=== PATIENT | female | born 1990 | race American Indian/Alaskan Native ===

== ENCOUNTER 2017-02-10 11:55 | Outpatient (CLI) | payer MEDICAID ==
[2017-02-10 12:52] LABS: Bilirubin,Urine NEG (Negative); Blood,Urine NEG (Negative); Ketones,Urine NEG (Negative); Leukocyte Esterase,Urine SM (Negative); Mucus,Urine FEW /HPF; Nitrite,Urine NEG (Negative); Protein,Urine <15 mg/dL mg/dL (Negative); Urobilinogen,Urine < 2.0 mg/dL (<2.0)
[2017-02-10] MEDS ORDERED: LACTATED RINGERS 500 ML IV ONE (13:12)
[2017-02-10 13:30] VITALS: BP 110/59
[2017-02-10] MEDS ORDERED: BRETHINE SUB-Q ONE (13:41)
[2017-02-10] MEDS ORDERED: CELESTONE SOLUSPAN IM SCH (14:00)
[2017-02-10 16:02] LABS: Basophils % (Auto) 0.6 % (0.0-1.8); Eosinophils % (Auto) 4.8 % (0.0-4.3); Hematocrit 27.7 % (30.3-42.9); Mean Corpuscular HGB Conc 32 % (30-34); Mean Corpuscular Hemoglobin 29 pg (28-32); Mean Corpuscular Volume 89 fl (79-97); Platelet Count 266 K/mm3 (140-440); Red Blood Count 3.12 M/mm3 (3.65-5.03); Red Cell Distribution Width 13.5 % (13.2-15.2); White Blood Count 9.3 K/mm3 (4.5-11.0)
[2017-02-10] MEDS ORDERED: NORCO 5/325 PO PRN (17:05)
--- NOTE | 2017-02-11 11:42 | Ultrasound Report ---
There is twin gestation noted. Placenta is anterior and grade 1 Baby A is cephalic presentation. Baby B has a transverse lie with head on the right side. heart rate of baby A is 156 per minute. heart rate of baby B 152 per minute. No evidence of abruption. The average gestational age of the baby is 24 weeks and 2 days and baby B is 24 weeks and 2 days .
== END 2017-02-10 17:21 | disposition home or self-care (01) ==
LOC: TRG 11:55
PROVIDERS: ATTEND Obstetrics & Gynecology
DX: O30.002 Twin pregnancy, unspecified number of placenta and unspecified number of amniotic sacs, second trimester (principal); O32.2XX2 Maternal care for transverse and oblique lie, fetus 2; O47.02 False labor before 37 completed weeks of gestation, second trimester; Z3A.24 24 weeks gestation of pregnancy
CPT/HCPCS: 36415; 59025; 76815; 81001; 82731; 85025; 96360; 96372; J0702; J3105; J7120

== ENCOUNTER 2017-02-11 13:54 | Outpatient (CLI) | payer MEDICAID ==
[2017-02-11] MEDS ORDERED: CELESTONE SOLUSPAN IM ONE ×2 (14:17→14:20)
== END 2017-02-11 14:50 | disposition home or self-care (01) ==
LOC: TRG 13:54
PROVIDERS: ATTEND Obstetrics & Gynecology
DX: O47.02 False labor before 37 completed weeks of gestation, second trimester (principal); Z3A.24 24 weeks gestation of pregnancy
CPT/HCPCS: 96372; J0702

== ENCOUNTER 2017-04-29 20:27 | Outpatient (CLI) | payer MEDICAID ==
[2017-04-29] MEDS ORDERED: LACTATED RINGERS 1,000 ML IV ONE (21:49)
[2017-04-29] MEDS ORDERED: BRETHINE SUB-Q ONE ×2 (22:38→23:35)
[2017-04-29] MEDS ORDERED: VISTARIL PO PRN (23:42)
[2017-04-30] MEDS ORDERED: BRETHINE SUB-Q ONE (00:20)
[2017-04-30 00:55] VITALS: BP 134/73
== END 2017-04-30 01:17 | disposition home or self-care (01) ==
LOC: TRG 20:27
PROVIDERS: ATTEND Obstetrics & Gynecology
DX: O47.03 False labor before 37 completed weeks of gestation, third trimester (principal); Z3A.35 35 weeks gestation of pregnancy
CPT/HCPCS: 96360; 96372; J3105; J7120; Q0177

== ENCOUNTER 2017-05-10 08:13 | Inpatient (IN) | payer MEDICAID ==
--- NOTE | 2017-05-10 08:42 | History and Physical Report ---
History of Present Illness Date of examination: 05/10/17 Date of admission: 05/10/17 08:13 History of present illness: 27 yo EDC 05/31/16 @ 37 weeks gestation twin gestation presented for induction of labor secondary to ACOG guidelines and perinatolgist recommendation. Entry into care at 13 weeks gestation. [place]/Di Twins withAPA comang't. Given steroids for PTC in January. Experienced Anemia with iron TID Past History Past Medical History: no pertinent history Past Surgical History: no surgical history Social history: no significant social history - Obstetrical History Expected Date of Delivery: 05/31/17 Actual Gestation: 37 Week(s) 1 Day(s) : 1 Medications and Allergies Allergies Allergy/AdvReac Type Severity Reaction Status Date / Time No Known Allergies Allergy Unverified 02/22/16 14:14 Home Medications Medication Instructions Recorded Confirmed Last Taken Type Ferrous Sulfate [Feosol] 325 mg PO QDAY 05/10/17 05/10/17 Unknown History Vit No.130/Iron/FA 1 each PO DAILY 05/10/17 05/10/17 05/08/17 10:00 History [ Tablet] Active Meds: Active Medications Butorphanol Tartrate (Stadol) 2 mg IV Q2H PRN PRN Reason: Pain , Severe (7-10) Ephedrine Sulfate (Ephedrine Sulfate) 10 mg IV Q2M PRN PRN Reason: Hypotension Stop: 05/10/17 08:34 Fentanyl (Sublimaze) 100 mcg IV Q2H PRN PRN Reason: Labor Pain Ampicillin Sodium (Polycillin/Ns 2 Gm/100 Ml) 2 gm in 100 mls @ 100 mls/hr IV ONCE ONE PRN Reason: Protocol Stop: 05/10/17 09:28 Lactated Ringer's (Lactated Ringers) 1,000 mls @ 125 mls/hr IV DIRECT ANIL Oxytocin/Sodium Chloride (Pitocin/Ns 20 Unit/1000ml Drip) 20 units in 1,000 mls @ 125 mls/hr IV DIRECT ANIL Oxytocin/Sodium Chloride (Pitocin/Ns 30 Unit/500ml) 30 units in 500 mls @ 1 mls /hr IV TITR ANIL; 1 MILLIUNITS/MIN PRN Reason: Protocol Lidocaine (Xylocaine 2%) 20 ml INFILTRATI ONCE ONE Stop: 05/10/17 08:30 Mineral Oil (Mineral Oil) 30 ml PO QHS PRN PRN Reason: Constipation Terbutaline Sulfate (Brethine) 0.25 mg SUB-Q ONCE PRN PRN Reason: Hyperstimulation/Hypertonicity Stop: 05/10/17 08:30 Terbutaline Sulfate (Brethine) 0.25 mg IVP ONCE PRN PRN Reason: Hyperstimulation/Hypertonicity Stop: 05/10/17 08:30 Review of Systems All systems: negative - Physical Exam Breasts: Positive: deferred Abdomen: Positive: normal appearance Vulva: both: normal Vagina: Positive: normal moisture Uterus: Positive: normal size Anus/Rectum: Positive: normal perianal skin - Obstetrical FHR: other FHR comments: RN in process of placing EFM Uterine Contraction Monitor Mode: External Results Result Diagrams: 05/11/17 05:13 All other labs normal. Assessment and Plan A: IUP @ 37 weeks twin gestation Labor induction Unknown GBS Anemia P: GBS prophylaxis(attempt to obtain collected culture results from lab week) U/S at BS to confirm presentation MD consult
[2017-05-10] MEDS ORDERED: POLYCILLIN/NS 2 GM/100 ML 2 GM/100 ML BAG IV ONE (09:00)
[2017-05-10] MEDS ORDERED: SUBLIMAZE IV PRN (09:00)
[2017-05-10] MEDS ORDERED: LACTATED RINGERS 1,000 ML IV SCH (09:00)
[2017-05-10] MEDS ORDERED: ePHEDrine SULFATE IV PRN (09:00)
[2017-05-10] MEDS ORDERED: PITOCin/NS 30 UNIT/500ML 30 UNITS/500 ML BAG IV SCH (09:00)
[2017-05-10] MEDS ORDERED: STADOL IV PRN (09:00)
[2017-05-10] MEDS ORDERED: PITOCin/NS 20 UNIT/1000ML DRIP 20 UNITS/1,000 ML BAG IV SCH ×2 (09:00→15:00)
[2017-05-10] MEDS ORDERED: XYLOCAINE 2% INFILTRATI ONE (09:30)
[2017-05-10] MEDS ORDERED: BRETHINE SUB-Q PRN (09:30)
[2017-05-10] MEDS ORDERED: BRETHINE IVP PRN (09:30)
[2017-05-10] MEDS ORDERED: MINERAL OIL PO PRN (09:30)
[2017-05-10 10:31] LABS: Hematocrit 31.2 % (30.3-42.9); Hemoglobin 10.3 gm/dl (10.1-14.3); Mean Corpuscular HGB Conc 33 % (30-34); Mean Corpuscular Volume 79 fl (79-97); Platelet Count 183 K/mm3 (140-440); Red Blood Count 3.96 M/mm3 (3.65-5.03); White Blood Count 5.8 K/mm3 (4.5-11.0)
[2017-05-10 10:39] LABS: Mean Corpuscular Hemoglobin 26 pg (28-32); Red Cell Distribution Width 21.9 % (13.2-15.2)
--- NOTE | 2017-05-10 11:46 | Ultrasound Report ---
ULTRASOUND OB LIMITED History: Twin gestation Technique: Transabdominal ultrasound with Doppler interrogation. Gestation: Twin A Position: Cephalic Heart Rate: 132 BPM Gestation: Twin B Position: Transverse, head to maternal left Heart Rate: 126 BPM
[2017-05-10] MEDS ORDERED: BICITRA PO ONE (11:52)
[2017-05-10] MEDS ORDERED: REGLAN IV NR (12:00)
--- NOTE | 2017-05-10 12:01 | Anesthesia Consultation ---
Anesthesia Consult and Med Hx Date of service: 05/10/17 - Airway Anesthetic Teeth Evaluation: Good ROM Head & Neck: Adequate Mental/Hyoid Distance: Adequate Mallampati Class: Class II Intubation Access Assessment: Probably Good - Pre-Operative Health Status ASA Pre-Surgery Classification: ASA2 Proposed Anesthetic Plan: Epidural, Spinal - Pulmonary Hx Asthma: No COPD: No Hx Pneumonia: No - Cardiovascular System Hx Hypertension: No - Central Nervous System Hx Seizures: No Hx Psychiatric Problems: No - Endocrine Hx Renal Disease: No Hx End Stage Renal Disease: No Hx Hypothyroidism: No Hx Hyperthyroidism: No - Hematic Hx Anemia: No Hx Sickle Cell Disease: No - Other Systems Hx Alcohol Use: No
--- NOTE | 2017-05-10 12:03 | Anesthesia Day of Surgery ---
Anesthesia Day of Surgery - Day of Surgery Patient Examined: Yes Patient H&P Reviewed: Yes Patient is NPO: Yes (had some orange at 8:30AM)
[2017-05-10] MEDS ORDERED: ANCEF/STERILE WATER 2 GM/20 ML 2 GM/20 ML SYRINGE IV ONE (12:10)
[2017-05-10] MEDS ORDERED: NARCAN 0.4 MG/1 ML IV PRN ×2 (12:30→14:20)
[2017-05-10] MEDS ORDERED: BENADRYL IV PRN (12:30)
[2017-05-10] MEDS ORDERED: DILAUDID IV PRN (12:30)
[2017-05-10] MEDS ORDERED: ZOFRAN IV PRN ×2 (12:30→14:20)
[2017-05-10] MEDS ORDERED: TORADOL IV PRN ×2 (12:30→14:20)
[2017-05-10] MEDS: PEPCID IV SCH (12:34)
--- NOTE | 2017-05-10 12:51 | Event Note ---
Date: 05/10/17 Spoke with patient concerning route of delivery for malpresentation of twins vertex A and transverse B . We discussed risk of vaginal delivery. After long discussion and risk of vaginal vs primary c/sec patient agrees to proceeding with c/sec after r/b/a of procedure reviewed which includes but not limited to bleeding, infecttion, damage to pelvic and non pelvic organs risk of hysterectomy and . Patient agrees with plan.
[2017-05-10] MEDS ORDERED: MORPHINE ONE (12:52)
[2017-05-10] MEDS ORDERED: SODIUM CHLORIDE FLUSH SYRINGE 10 ML IV PRN (13:00)
[2017-05-10] MEDS ORDERED: ZOFRAN ONE (13:52)
[2017-05-10] MEDS ORDERED: NEO SYNEPHRINE/NS Syringe(OR USE) IV ONE (14:00)
[2017-05-10] MEDS ORDERED: NACL 0.9% 1000 ML 1,000 ML ONE (14:05)
[2017-05-10] MEDS ORDERED: SENOKOT PO PRN (14:20)
[2017-05-10] MEDS ORDERED: TUCKS PAD TP PRN (14:20)
[2017-05-10] MEDS ORDERED: ANUCORT-HC PR PRN (14:20)
[2017-05-10] MEDS ORDERED: MILK OF MAGNESIA PO PRN (14:20)
[2017-05-10] MEDS ORDERED: PERCOCET 5/325 PO PRN (14:20)
[2017-05-10] MEDS ORDERED: MORPHINE IV PRN ×2 (14:20)
[2017-05-10] MEDS ORDERED: PHENERGAN PR PRN (14:20)
[2017-05-10] MEDS ORDERED: MYLICON PO PRN (14:20)
[2017-05-10] MEDS ORDERED: TYLENOL PO PRN (14:20)
[2017-05-10] MEDS ORDERED: LANSINOH TP PRN (14:20)
--- NOTE | 2017-05-10 14:20 | Operative Report ---
Operative Report Operative Report: PROCEDURE PERFORMED: Primary low-transverse section. ANESTHESIA: Epidural. ESTIMATED BLOOD LOSS: 800 mL. COMPLICATIONS: None. FINDINGS: Twins Female infant x2 in A. cephalic presentation B transverse ( nuchal cord) , , Baby A 1329 weight 5 pounds 12 ounces. Apgars were 8 at 1 minute and 9 at 5 minutes. Baby B 1330 5 pounds and 13oz Apgars 8 and 9. small fundal fibroid. Normal uterus, tubes, and ovaries were noted. INDICATIONS: The patient is a 27-year-old 1, para 0 female, who presented to labor and delivery came in noted to have malpresentation of twin B. Desires primary section The procedure was described to the patient in detail including possible risks of bleeding, infection, injury to surrounding organs, and possible need for further surgery. Informed consent was obtained prior to proceeding with the procedure. PROCEDURE NOTE: The patient was taken to the operating room where epidural anesthesia was found to be adequate. The patient was prepped and draped in the usual sterile fashion in the dorsal supine position with a left-paz tilt. A Pfannenstiel skin incision was made with the scalpel and carried through to the underlying layer of fascia using the Bovie. The fascia was incised in the midline and extended laterally using Shepherd scissors. Fernando clamps were used to elevate the superior aspect of the fascial incision, which was elevated, and the underlying rectus muscles were dissected off bluntly and using Shepherd scissors. Attention was then turned to the inferior aspect of the fascial incision, which in similar fashion was grasped with Fernando clamps, elevated, and the underlying rectus muscles were dissected off bluntly and using Shepherd scissors. The rectus muscles were dissected in the midline. The peritoneum was bluntly dissected, entered, and extended superiorly and inferiorly with good visualization of the bladder. The bladder blade was inserted. The vesicouterine peritoneum was identified with pickups and entered sharply using Metzenbaum scissors. This incision was extended laterally and the bladder flap was created digitally. The bladder blade was reinserted. The lower uterine segment was incised in a transverse fashion using the scalpel and extended using manual traction. Clear fluid was noted. The was subsequently delivered atraumatically. The nose and mouth were bulb suctioned. The cord was clamped and cut. The infant was subsequently handed to the awaiting nursery nurse. Next, cord blood was obtained per the patient's request for cord blood donation, which took several minutes to perform. Subsequent to the collection of this blood, the placenta was removed spontaneously intact with a 3-vessel cord noted. The uterus was exteriorized and cleared of all clots and debris. The uterine incision was repaired in 2 layers using 0 chromic suture. Hemostasis was visualized. The uterus was returned to the abdomen. The pelvis was copiously irrigated. The uterine incision was reexamined and was noted to be hemostatic. The rectus muscles were reapproximated in the midline using 3-0 Vicryl. The fascia was closed with 0 Vicryl, the subcutaneous layer was closed with 3-0 plain gut, and the skin was closed with vel. Sponge, lap , and instrument counts were correct x2. The patient was stable at the completion of the procedure and was subsequently transferred to the recovery room in stable condition.
[2017-05-10] MEDS: TORADOL IV PRN ×2 (14:45→21:32)
[2017-05-10] MEDS ORDERED: FEOSOL PO SCH (15:00)
[2017-05-10] MEDS ORDERED: SODIUM CHLORIDE FLUSH SYRINGE 10 ML IV NR (15:00)
[2017-05-10] MEDS ORDERED: DILAUDID IV ONE (16:54)
[2017-05-11 05:33] LABS: Hematocrit 29.8 % (30.3-42.9); Hemoglobin 9.5 gm/dl (10.1-14.3)
[2017-05-11] MEDS: TORADOL IV PRN (06:32)
--- NOTE | 2017-05-11 07:42 | Progress Note ---
Assessment and Plan O; VSS AF PP H/H: 9.5/29.8 A: Stable POD #1 S/P primary C/S twins Anemia P: Iron TID Colace Abd Binder Subjective - Subjective Date of service: 05/11/17 Interval history: 27 yo EDC 05/31/16 @ 37 weeks gestation twin gestation presented for induction of labor secondary to ACOG guidelines and perinatolgist recommendation. Entry into care at 13 weeks gestation. [place]/Di Twins withAPA comang't. Given steroids for PTC in January. Experienced Anemia with iron TID Patient reports: appetite normal (Tolerating CL diet w/o N/v, requesting solids) , pain well controlled, no voiding normally (Palmer discontinued at 0600, not up to void at time of entry), no flatus, no ambulating normally : doing well, other (twins) Objective - Vital Signs Latest vital signs: Vital Signs Temp Pulse Pulse Resp BP BP 05/11/17 04:00 98.6 F 69 16 139/77 05/11/17 00:00 98.6 F 77 16 134/77 05/10/17 20:00 98.6 F 62 16 140/74 05/10/17 15:45 98.3 F 56 L 20 140/90 05/10/17 08:49 69 135/77 05/10/17 08:30 98.5 F 20 Intake and Output 05/10/17 05/11/17 05/11/17 22:59 06:59 14:59 Intake Total 250 300 Output Total 100 800 Balance 150 -500 Intake: IV 250 PITOCin/NS 20 UNIT/1000ML 250 DRIP 20 units In 1,000 ml @ 125 mls/hr IV DIRECT ANIL Rx#:[id number] Intake, Free Water 300 Output: Urine 100 800 Indwelling Catheter 800 Other: Total, Output Amount 800 Estimated Blood Loss 800 - Exam Breasts: Present: normal, Cardiovascular: Present: Regular rate Lungs: Present: Normal air movement Abdomen: Present: normal appearance, soft, normal bowel sounds. Absent: distention, tenderness Vulva: both: normal Uterus: Present: normal, firm, fundal height below umbilicus. Absent: bogginess , tenderness Extremities: Present: normal Incision: Present: normal, dry, intact, dressed - Labs Labs: Abnormal lab results 05/10/17 05/11/17 Range/Units 08:49 05:13 Hgb 9.5 L (10.1-14.3) gm/dl Hct 29.8 L (30.3-42.9) % MCH 26 L (28-32) pg RDW 21.9 H (13.2-15.2) %
[2017-05-11] MEDS: PRENATAL VITAMIN PO SCH (10:21)
[2017-05-11] MEDS: COLACE PO SCH ×2 (10:21→21:04)
[2017-05-11] MEDS: PEPCID IV SCH (10:21)
[2017-05-11] MEDS: MOTRIN PO PRN ×2 (11:35→19:56)
[2017-05-11] MEDS: MILK OF MAGNESIA PO PRN ×3 (12:14→21:04)
--- NOTE | 2017-05-11 12:54 | Event Note ---
Date: 05/11/17 Was contacted by nurse as patient c/o chest pain as walking. She denies any n,v , f, chills. The pain lst few seconds with breathing but has not happened since. She had EKG per nurse normal sinus rhythm. Patinet currently breast feeding with conusltant VSS CVS: RRR ss1s2 lungs: CTA no wheeszes no crackles abd: soft appropriately tender dressing removed steri strips in place ext: no/c/c/ e no calf tenderness A/P GERD , s/p primary c/s malpresentation twins MOM simethicone increase ambulation pain meds around clock declines anti anxiety meds ( per charge nurse she has hx of anciety) all questions answered
[2017-05-11] MEDS ORDERED: M-M-R II VACCINE SUB-Q ONE (14:21)
[2017-05-11] MEDS ORDERED: BOOSTRIX IM ONE (14:21)
[2017-05-11] MEDS: FEOSOL PO SCH ×2 (14:49→21:04)
[2017-05-11] MEDS: PERCOCET 5/325 PO PRN ×2 (17:08→21:04)
[2017-05-12] MEDS: PERCOCET 5/325 PO PRN ×4 (00:49→19:29)
[2017-05-12] MEDS: NORCO 5/325 PO PRN ×2 (05:27→13:22)
[2017-05-12] MEDS: MOTRIN PO PRN ×3 (05:27→21:18)
[2017-05-12] MEDS: MILK OF MAGNESIA PO PRN ×2 (05:30→21:18)
--- NOTE | 2017-05-12 08:20 | Progress Note ---
Assessment and Plan O: VSS AF A: Postop Day #2 Abdominal Distention P: Magnesium Citrate Subjective - Subjective Date of service: 05/12/17 Interval history: 27 yo EDC 05/31/16 @ 37 weeks gestation twin gestation presented for induction of labor secondary to ACOG guidelines and perinatolgist recommendation. Entry into care at 13 weeks gestation. [place]/Di Twins withAPA comang't. Given steroids for PTC in January. Experienced Anemia with iron TID Patient reports: appetite normal, voiding normally, pain well controlled, ambulating normally, no flatus, no bowel movement (Tolerating Clears only. No flatus.) : doing well, nursing well Objective - Vital Signs Latest vital signs: Vital Signs Temp Pulse Pulse Resp BP 05/12/17 08:17 98.2 F 62 20 140/72 05/12/17 00:49 18 05/12/17 00:00 98.2 F 65 20 147/76 05/11/17 16:50 99.1 F 79 18 138/73 05/11/17 11:55 98.5 F 68 18 149/83 05/11/17 08:30 98.8 F 85 20 127/59 Intake and Output 05/11/17 05/12/17 05/12/17 22:59 06:59 14:59 Intake Total 360 120 Output Total 800 Balance -440 120 Intake: Oral 360 120 Output: Urine 800 Void 800 Other: Total, Intake Amount 120 120 Total, Output Amount 400 # Voids Void 1 1 1 - Exam Breasts: Present: deferred Abdomen: Present: normal appearance, soft, distention, normal bowel sounds. Absent: tenderness Vulva: both: normal Uterus: Present: normal, firm, fundal height below umbilicus. Absent: bogginess Extremities: Present: normal, edema Incision: Present: normal, dry, intact
[2017-05-12] MEDS ORDERED: CITRATE OF MAGNESIA PO ONE (09:00)
[2017-05-12] MEDS: FEOSOL PO SCH ×2 (09:40→19:28)
[2017-05-12] MEDS: COLACE PO SCH ×2 (09:40→21:18)
[2017-05-12] MEDS: PRENATAL VITAMIN PO SCH (09:41)
[2017-05-13] MEDS: PERCOCET 5/325 PO PRN ×3 (00:22→11:09)
--- NOTE | 2017-05-13 07:25 | Progress Note ---
Assessment and Plan O: VSS AF A: Stable POD #3 P: d/C home Routine orders Subjective - Subjective Date of service: 05/13/17 Interval history: 27 yo EDC 05/31/16 @ 37 weeks gestation twin gestation presented for induction of labor secondary to ACOG guidelines and perinatolgist recommendation. Entry into care at 13 weeks gestation. [place]/Di Twins withAPA comang't. Given steroids for PTC in January. Experienced Anemia with iron TID Patient reports: appetite normal, voiding normally, pain well controlled, flatus , bowel movement, ambulating normally : doing well, nursing well Objective - Vital Signs Latest vital signs: Vital Signs Temp Pulse Resp BP 05/13/17 00:00 98.4 F 82 20 129/76 05/12/17 16:35 97.6 F 80 20 116/72 05/12/17 08:17 98.2 F 62 20 140/72 Intake and Output 05/12/17 05/13/17 05/13/17 22:59 06:59 14:59 Intake Total 120 240 Balance 120 240 Intake: Oral 120 240 Other: Total, Intake Amount 120 240 # Voids Void 1 1 # Bowel Movements 1 1 - Exam Breasts: Present: normal Lungs: Present: Normal air movement Abdomen: Present: normal appearance, soft. Absent: distention Uterus: Present: normal, firm, fundal height below umbilicus. Absent: bogginess , tenderness Extremities: Present: normal Incision: Present: normal, dry, intact
--- NOTE | 2017-05-13 07:26 | Discharge Summary ---
Providers - Providers Date of Admission: 05/10/17 08:13 Date of discharge: 05/13/17 Attending physician: MIKAEL WALLIS MD Primary care physician: MIKAEL WALLIS MD Hospitalization Reason for admission: IUP at term, other (twin) Delivery: Procedure: section Episiotomy: none Laceration: none Incision: normal, dry, intact Other procedures: none complications: none Discharge diagnosis: IUP at term delivered baby: twins Condition at discharge: Good Disposition: DC-01 TO HOME OR SELFCARE Plan - Discharge Medications Prescriptions: Docusate Sodium [Colace] 100 mg PO BID PRN #60 capsule PRN Reason: contipation Ferrous Sulfate [Feosol 325 MG tab] 325 mg PO QDAY #60 tablet Ibuprofen [Motrin 800 MG tab] 800 mg PO TID PRN #30 tablet PRN Reason: Pain oxyCODONE /ACETAMINOPHEN [Percocet 5/325] 1 - 2 tab PO Q4HR PRN #30 tab PRN Reason: Pain - Provider Discharge Summary Activity: routine, no sex for 6 weeks, no heavy lifting 4 weeks, no strenuous exercise Diet: routine Instructions: routine Additional instructions: [] Smoking cessation referral if applicable(refer to patient education folder for contact #) [] Refer to [facility]'s [facility] Booklet Call your doctor immediately for: * Fever > 100.5 * Heavy vaginal bleeding ( >1 pad per hour) * Severe persistent headache * Shortness of breath * Reddened, hot, painful area to leg or breast * Drainage or odor from incision. * Keep incision clean and dry at all times and follow doctor's instructions regarding bathing/showering - Follow up plan Follow up: MIKAEL WALLIS MD [Primary Care Provider] - 14 Days
[2017-05-13] MEDS ORDERED: M-M-R II VACCINE SUB-Q ONE ×2 (08:14→10:51)
[2017-05-13 09:19] VITALS: BP 137/78
[2017-05-13] MEDS: MOTRIN PO PRN (11:08)
[2017-05-13] MEDS: FEOSOL PO SCH (13:22)
[2017-05-13] MEDS: PRENATAL VITAMIN PO SCH (13:24)
== END 2017-05-13 13:35 | disposition home or self-care (01) | DRG 765 ==
LOC: LD 08:13 → APU 13:57 → OB 15:49
PROVIDERS: ADMIT Obstetrics & Gynecology; ATTEND Obstetrics & Gynecology
PROC: 10D00Z1 Extraction of Products of Conception, Low, Open Approach (ICD-10-PCS; principal; 2017-05-10)
PROC: 3E0234Z Introduction of Serum, Toxoid and Vaccine into Muscle, Percutaneous Approach (ICD-10-PCS; 2017-05-10)
DX: O32.2XX2 Maternal care for transverse and oblique lie, fetus 2 (principal); O30.033 Twin pregnancy, monochorionic/diamniotic, third trimester; O99.62 Diseases of the digestive system complicating childbirth; O99.02 Anemia complicating childbirth; O32.2XX0 Maternal care for transverse and oblique lie, not applicable or unspecified; D64.9 Anemia, unspecified; O69.81X2 Labor and delivery complicated by cord around neck, without compression, fetus 2; K21.9 Gastro-esophageal reflux disease without esophagitis; Z3A.37 37 weeks gestation of pregnancy; Z37.2 Twins, both liveborn
CPT/HCPCS: 36415; 76815; 85014; 85018; 85027; 86850; 86900; 86901; 88307; 90471; 90707; 93005; 93010; 99211; A6250; C9250; G0463; J0690; J1170; J1885; J2270; J2370; J2405; J2590; J2765; J7030; J7120